=== PATIENT | male | born 1950 | race Caucasian/White ===

== ENCOUNTER 2023-08-11 14:45 | Outpatient (RCR) | payer MEDICARE, BC, SELFPAY | END 2023-12-09 23:59 | disposition home or self-care (01) | PROVIDERS: PCP Family Medicine; Visit Provider Family Medicine | DX: M77.8 Other enthesopathies, not elsewhere classified (principal); Z51.89 Encounter for other specified aftercare | CPT/HCPCS: 97110; 97140; 97162 ==

== ENCOUNTER 2023-11-12 06:25 | Outpatient (CLI) | payer MEDICARE, BC, SELFPAY ==
--- NOTE | 2023-11-12 08:03 | P.ANES_ITS ---
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
--- NOTE | 2023-11-12 08:54 | W.ANESCHARGE ---
Anesthesia Charges Start Date/Time Anesthesia Start Date: 11/12/23 Anesthesia Start Time: 07:11 Stop Date/Time Anesthesia Stop Date: 11/12/23 Anesthesia Stop Time: 07:58 Summary Extremes of Age - Over 70 or under 1: MDA
== END 2023-11-12 06:26 | disposition home or self-care (01) ==
LOC: OP CLINIC 06:27
PROVIDERS: PCP Family Medicine; Visit Provider Surgery
DX: Z86.010 Personal history of colon polyps (principal); K57.30 Diverticulosis of large intestine without perforation or abscess without bleeding; Z98.890 Other specified postprocedural states
CPT/HCPCS: 00811; 45380; 88305; 99100; J2704

== ENCOUNTER 2024-04-18 09:02 | Emergency (ER) | payer MEDICARE, BC, SELFPAY ==
[2024-04-18 09:10] VITALS: BP 159/88; PULSE 76; RESP 18; TEMP 36.9; O2SAT 95
--- NOTE | 2024-04-18 09:53 | ED_ITS ---
HPI - General Adult General Date Seen: 04/18/24 Chief complaint: Urogenital Problems, Male Stated complaint: UTI symptoms possible fever Time Seen by Provider: 04/18/24 09:50 History of Present Illness HPI narrative: 73 yo M with h/o HTN, lumbar stenosis, BLAYNE, elevated BMI, presenting to the ER today with concern for perineal discomfort, urinary urgency and frequency, fever and chills. He notes that he has had some pain in his perineum for about a month or so. He has noted because he has been helping his neighbor akash reynoso. When riding in the [employer], he has been having some discomfort in his perineum at the end of the day. This is not typical for him. Beginning 4 days ago, last he started having fever and chills, increased perineal pain and also urinary hesitancy. He had a sensation that his bladder was quite full but he was not able to empty out much. He has been peeing about a cup or so every 1/2 hour to hour during the day since then. He has not really been having to get up at night to urinate. He felt pretty achy and feverish and chilled on and Thursday. He took some leftover amoxicillin tablets. He took a total of 4 500 mg tablets twice daily on no Thursday and Thursday. Since then his fever and chills have been gone but he still has the ongoing urinary symptoms. He has not been experiencing flank pain. No abdominal pain.. No nausea vomiting. He has been able to empty his bladder out any just urinated here in the ER and feels like his bladder is now empty. No ongoing fever or chills. He has no history of diabetes or immunosuppression. No history of BPH but he suspects he may be developing it because he has been having some decreased urinary stream for about the past year or so. Related Data Home Medications ?Medication ?Instructions ?Recorded ?Confirmed amlodipine 5 mg tablet 5 mg PO DAILY 04/18/24 04/18/24 hydrochlorothiazide 25 mg tablet 25 mg PO DAILY 04/18/24 04/18/24 losartan 100 mg tablet 100 mg PO DAILY 04/18/24 04/18/24 Previous Rx's ?Medication ?Instructions ?Recorded ciprofloxacin HCl 500 mg tablet 500 mg PO BID 28 days #56 tabs 04/18/24 (Cipro) Allergies Allergy/AdvReac Type Severity Reaction Status Date / Time No Known Drug Allergies Allergy Verified 04/18/24 09:14 Exam Narrative: Exam Narrative: Constitutional: Appears well-developed and well-nourished. Alert. Conversant. Robust appearing. Very polite Non toxic. HENT: Head: Atraumatic. Nose: Nose normal. Mouth/Throat: Oral mucosa is clear and moist. no trismus. Pharynx normal. Tonsils symmetric. No tonsillar enlargement, erythema, or exudate. Eyes: Conjunctivae normal. EOM normal. Pupils equal, round, and reactive to light. No scleral icterus. Neck: Normal range of motion. Neck supple. No tracheal deviation present. Cardiovascular: Normal rate, regular rhythm. No gallop. No friction rub. No murmur heard. S Pulmonary/Chest: Effort normal. No stridor. No respiratory distress. No wheezes. No rales. No rhonchi . No tenderness. Abdominal: Soft. Bowel sounds normal. No distension. No mass. No tenderness. No rebound. No guarding. No CVA tenderness Rectal: Prostate exam deferred due to anticipated discomfort. Musculoskeletal: RUE: Normal range of motion. No tenderness. No deformity LUE: Normal range of motion. No tenderness. No deformity RLE: Normal range of motion. No edema. No tenderness. No deformity LLE: Normal range of motion. No edema. No tenderness. No deformity Neurological: Alert and oriented to person, place, and time. Normal strength. CN II-VII intact. No sensory deficit. GCS eye subscore is 4. GCS verbal subscore is 5. GCS motor subscore is 6. Normal coordination Skin: Skin is warm and dry. No rash noted. No pallor. Normal capillary refill. Psychiatric: Normal mood. Normal affect. Const: Vital Signs, click to edit/add: Vital Signs - 24 hr 04/18/24 09:10 Temperature 98.5 F Pulse Rate [Pulse Oximeter] 76 Respiratory Rate 18 Blood Pressure [Ri ght Upper Arm] 159/88 H Pulse Oximetry 95 Oxygen Delivery Me thod Room Air Course Vital Signs Vital signs: Initial Vital Signs Temperature 98.5 F 04/18/24 09:10 Temperature Source Temporal Artery Scan 04/18/24 09:10 Pulse Rate 76 04/18/24 09:10 Respiratory Rate 18 04/18/24 09:10 Blood Pressure 159/88 H 04/18/24 09:10 Blood Pressure Mean 111 H 04/18/24 09:10 Blood Pressure Position Sitting 04/18/24 09:10 Pulse Oximetry 95 04/18/24 09:10 Oxygen Delivery Method Room Air 04/18/24 09:10 Vital Signs Temperature 98.5 F 04/18/24 09:10 Pulse Rate 76 04/18/24 09:10 Respiratory Rate 18 04/18/24 09:10 Blood Pressure 159/88 H 04/18/24 09:10 Pulse Oximetry 95 04/18/24 09:10 Oxygen Delivery Method Room Air 04/18/24 09:10 Temperature 98.5 F 04/18/24 09:10 Pulse Rate 76 04/18/24 09:10 Respiratory Rate 18 04/18/24 09:10 Blood Pressure 159/88 H 04/18/24 09:10 Pulse Oximetry 95 04/18/24 09:10 Oxygen Delivery Method Room Air 04/18/24 09:10 Medical Decision Making MDM Narrative Medical decision making narrative: This patient presents for evaluation of fever and chills, urinary urgency and hesitancy, perineal pain. Clinically I think this patient's are suggestive of prostatitis rather than a typical ordinary UTI.. This clinically is consistent with a urinary tract infection. Urinalysis confirms the infection. He did have some fever and chills 4 days and 3 days ago, but none yesterday, or today. He is clinically nontoxic. At this point I do not think he needs labs, IV antibiotics or fluids, or hospitalization. There has been no back/flank pain or significant abdominal pain. There is no clinical evidence of pyelonephritis, appendicitis, colitis, diverticulitis or any intraabdominal catastrophe. The patient will be started on antibiotics for the infection. Given suspected pro statitis will put him on a four-week course of Cipro. He will also start probiotics to prevent diarrhea. He did take amoxicillin a few days ago which could [place] possible urine culture results. Return if increasing pain, vomiting, fever, or inability to tolerate the oral antibiotic. Follow up with primary physician is indicated within 1 week. Return to the ER if worse. Lab Data Labs: Lab Results 04/18/24 Range/Units 09:50 Urine Color Yellow (Yellow) Urine Appearance Cloudy A (Clear) Urine pH 8.5 (5.0-8.5) Ur Specific [place] 1.020 (1.000-1.030) Urine Protein Trace A (Negative) Urine Glucose (UA) Negative (Negative) Urine Ketones Negative (Negative) Urine Blood Trace-intact A (Negative) Urine Nitrite Positive A (Negative) Urine Bilirubin Negative (Negative) Urine Urobilinogen 4.0 A (0.2-1.0) Ur Leukocyte Esterase 3+ A (Negative) Urine RBC 5-10 A (0-2) Urine WBC 50-100 A (0-5) Urine WBC Clumps Few A (None) Ur Squamous Epith Cells Few (None-Few) Urine Bacteria Moderate A (None) Discharge Plan Discharge Clinical Impression: Prostatitis Patient Disposition: Home, Self-Care Condition: Stable Instructions: Prostatitis (ED) Additional Instructions: As we discussed, we will start you on the antibiotic (ciprofloxacin) for a 4 week course. While your on the antibiotic he should take probiotics or yogurt with active cultures to help prevent diarrhea and GI side effects from the antibiotic. We will send a sample of your urine today to the lab for a culture. This takes a couple of days to process in the lab. If the culture grows a strain of bacteria that are resistant to the ciprofloxacin, we will contact you by phone to change your antibiotic. Monitor your symptoms carefully. If you have inability to empty your bladder, redeveloped high fever or chills, weakness, nausea or vomiting or dehydration, or if you are getting worse, please come back to the ER right away to be rechecked. Please recheck with your regular doctor within the next week for re-evaluation. Prescriptions: New ciprofloxacin HCl [Cipro] 500 mg tablet 500 mg PO BID 28 Days Qty: 56 0RF No Action amlodipine 5 mg tablet 5 mg PO DAILY hydrochlorothiazide 25 mg tablet 25 mg PO DAILY losartan 100 mg tablet 100 mg PO DAILY Follow Up/Referrals: Aleksey Loo MD [Primary Care Provider] - Stand Alone Forms: [facility] Info Instructions
[2024-04-18 10:19] LABS: Appearance Urine Cloudy (Clear); Bilirubin Urine Negative (Negative); Blood Urine Trace-intact (Negative); Color Urine Yellow (Yellow); Glucose Urine Negative (Negative); Ketones Urine Negative (Negative); Leukocyte Esterase Urine 3+ (Negative); Nitrite Urine Positive (Negative); Protein Urine Trace (Negative); pH Urine 8.5 (5.0-8.5)
[2024-04-18 10:29] LABS: Bacteria Urine Moderate; Squamous Epithelial Cell Urine Few (None-Few); WBC Clumps Urine Few; WBC Urine 50-100 (0-5)
--- NOTE | 2024-04-23 13:42 | ED_ITS ---
HPI - General Adult General Chief complaint: Urogenital Problems, Male Stated complaint: UTI symptoms possible fever Time Seen by Provider: 04/18/24 09:50 History of Present Illness HPI narrative: Urine cx grows E coli with several resistances. On Cipro and sensitive. no change Related Data Home Medications ?Medication ?Instructions ?Recorded ?Confirmed amlodipine 5 mg tablet 5 mg PO DAILY 04/18/24 04/18/24 hydrochlorothiazide 25 mg tablet 25 mg PO DAILY 04/18/24 04/18/24 losartan 100 mg tablet 100 mg PO DAILY 04/18/24 04/18/24 Previous Rx's ?Medication ?Instructions ?Recorded ciprofloxacin HCl 500 mg tablet 500 mg PO BID 28 days #56 tabs 04/18/24 (Cipro) Allergies Allergy/AdvReac Type Severity Reaction Status Date / Time No Known Drug Allergies Allergy Verified 04/18/24 09:14 PFSH PFS Social History Smoking Status: Never smoker Do you use any of these nicotine containing products: None How often do you have a drink containing alcohol: never AUDIT-C Alcohol total score: 0 Course Vital Signs Vital signs: Initial Vital Signs Temperature 98.5 F 04/18/24 09:10 Temperature Source Temporal Artery Scan 04/18/24 09:10 Pulse Rate 76 04/18/24 09:10 Respiratory Rate 18 04/18/24 09:10 Blood Pressure 159/88 H 04/18/24 09:10 Blood Pressure Mean 111 H 04/18/24 09:10 Blood Pressure Position Sitting 04/18/24 09:10 Pulse Oximetry 95 04/18/24 09:10 Oxygen Delivery Method Room Air 04/18/24 09:10 Vital Signs Temperature 98.5 F 04/18/24 09:10 Pulse Rate 76 04/18/24 09:10 Respiratory Rate 18 04/18/24 09:10 Blood Pressure 159/88 H 04/18/24 09:10 Pulse Oximetry 95 04/18/24 09:10 Oxygen Delivery Method Room Air 04/18/24 09:10 Temperature 98.5 F 04/18/24 09:10 Pulse Rate 76 04/18/24 09:10 Respiratory Rate 18 04/18/24 09:10 Blood Pressure 159/88 H 04/18/24 09:10 Pulse Oximetry 95 04/18/24 09:10 Oxygen Delivery Method Room Air 04/18/24 09:10 Medical Decision Making Lab Data Labs: Lab Results 04/18/24 Range/Units 09:50 Urine Color Yellow (Yellow) Urine Appearance Cloudy A (Clear) Urine pH 8.5 (5.0-8.5) Ur Specific [place] 1.020 (1.000-1.030) Urine Protein Trace A (Negative) Urine Glucose (UA) Negative (Negative) Urine Ketones Negative (Negative) Urine Blood Trace-intact A (Negative) Urine Nitrite Positive A (Negative) Urine Bilirubin Negative (Negative) Urine Urobilinogen 4.0 A (0.2-1.0) Ur Leukocyte Esterase 3+ A (Negative) Urine RBC 5-10 A (0-2) Urine WBC 50-100 A (0-5) Urine WBC Clumps Few A (None) Ur Squamous Epith Cells Few (None-Few) Urine Bacteria Moderate A (None) Discharge Plan Discharge Clinical Impression: Prostatitis Patient Disposition: Home, Self-Care Condition: Stable Instructions: Prostatitis (ED) Additional Instructions: As we discussed, we will start you on the antibiotic (ciprofloxacin) for a 4 week course. While your on the antibiotic he should take probiotics or yogurt with active cultures to help prevent diarrhea and GI side effects from the antibiotic. We will send a sample of your urine today to the lab for a culture. This takes a couple of days to process in the lab. If the culture grows a strain of bacteria that are resistant to the ciprofloxacin, we will contact you by phone to change your antibiotic. Monitor your symptoms carefully. If you have inability to empty your bladder, redeveloped high fever or chills, weakness, nausea or vomiting or dehydration, or if you are getting worse, please come back to the ER right away to be rechecked. Please recheck with your regular doctor within the next week for re-evaluation. Prescriptions: New ciprofloxacin HCl [Cipro] 500 mg tablet 500 mg PO BID 28 Days Qty: 56 0RF No Action amlodipine 5 mg tablet 5 mg PO DAILY hydrochlorothiazide 25 mg tablet 25 mg PO DAILY losartan 100 mg tablet 100 mg PO DAILY Follow Up/Referrals: Aleksey Loo MD [Primary Care Provider] - Stand Alone Forms: [employer] [facility] [employer] Info Instructions
== END 2024-04-18 11:07 | disposition home or self-care (01) ==
LOC: ED 10:39
PROVIDERS: Emergency Provider Emergency Medicine; PCP Family Medicine
DX: N41.9 Inflammatory disease of prostate, unspecified (principal)
CPT/HCPCS: 81001; 81003; 87086; 87186; 99281; 99282; 99283

== ENCOUNTER 2024-11-01 12:37 | Outpatient (CLI) | payer MEDICARE, SELFPAY ==
--- NOTE | 2024-11-01 15:05 | P.ANES_ITS ---
Anesthesia Charges Start Date/Time Anesthesia Start Date: 11/01/24 Anesthesia Start Time: 14:25 Stop Date/Time Anesthesia Stop Date: 11/01/24 Anesthesia Stop Time: 15:03 Summary Extremes of Age - Over 70 or under 1: PLASTERER FOREMAN Coding CPT Codes CPT Codes: ANES LWR INTST NDSC NOS - 09392 ([id number]) P3 - PATIENT W/SEVERE SYS DISEASE, QK - VICE PRESIDENT TALENT MANAGEMENT 2-4 CNCRNT ANES PROC, QX - PLASTERER FOREMAN SVC W/ MD MED DIRECTION Additional Codes: Summary - Extremes of Age - Over 70 or under 1: PLASTERER FOREMAN ([id number])
--- NOTE | 2024-11-01 15:05 | W.ANESCHARGE ---
Anesthesia Charges Start Date/Time Anesthesia Start Date: 11/01/24 Anesthesia Start Time: 14:25 Stop Date/Time Anesthesia Stop Date: 11/01/24 Anesthesia Stop Time: 15:03 Summary Extremes of Age - Over 70 or under 1: ORACLE REPORTS DEVELOPER Coding CPT Codes CPT Codes: ANES LWR INTST NDSC NOS - 69991 ([id number]) P3 - PATIENT W/SEVERE SYS DISEASE, QK - CORRUGATED BOX MACHINE OPERATOR 2-4 CNCRNT ANES PROC, QX - ORACLE REPORTS DEVELOPER SVC W/ MD MED DIRECTION Additional Codes: Summary - Extremes of Age - Over 70 or under 1: ORACLE REPORTS DEVELOPER ([id number])
--- NOTE | 2024-11-01 15:29 | P.ANES_ITS ---
Anesthesia Charges Start Date/Time Anesthesia Start Date: 11/01/24 Anesthesia Start Time: 14:25 Stop Date/Time Anesthesia Stop Date: 11/01/24 Anesthesia Stop Time: 15:03 Summary Extremes of Age - Over 70 or under 1: MDA Coding CPT Codes CPT Codes: ANES LWR INTST NDSC NOS - 09042 ([id number]) QK - SHADE BANDER 2-4 CNCRNT ANES PROC, QX - HUMAN RESOURCES OPERATIONS SPECIALIST SVC W/ MD MED DIRECTION, P3 - PATIENT W/SEVERE SYS DISEASE Additional Codes: Summary - Extremes of Age - Over 70 or under 1: MDA ([id number])
== END 2024-11-01 12:38 | disposition home or self-care (01) ==
LOC: OP CLINIC 12:39
PROVIDERS: PCP Family Medicine; Visit Provider Surgery
DX: D12.0 Benign neoplasm of cecum (principal); D12.3 Benign neoplasm of transverse colon; Z86.0101 Personal history of adenomatous and serrated colon polyps; Z98.890 Other specified postprocedural states
CPT/HCPCS: 00811; 45380; 45385; 88305; 99100; J2704